=== PATIENT | female | born 1970 ===

== ENCOUNTER 2025-03-10 08:00 | Day surgery (SDC) | payer OTHER ==
[2025-03-08 10:13] VITALS: BP 130/77
[2025-03-08 10:30] LABS: BASO % 1.0 % (0.1-1.2); EOS # 0.42 (0.04-0.54); EOS % 6.1 % (0.7-7.0); LYMPH # 2.61 (1.18-3.74); LYMPH % 37.8 % (19.3-53.1); MEAN PLATELET VOLUME 9.80 fl (9.4-12.4); MONO # 0.50 (0.24-0.82); MONO % 7.2 % (4.7-12.5); NEUT # 3.28 (1.56-6.13); NEUT % 47.5 % (34.0-71.1); RED CELL DISTRIBUTION WIDTH 12.2 % (11.6-14.4)
[2025-03-08 10:32] LABS: URINE APPEARANCE Clear; URINE BILIRRUBIN Negative (NEGATIVE); URINE BLOOD Negative; URINE COLOR Yellow; URINE GLUCOSE Negative (NEGATIVE); URINE KETONE Negative (NEGATIVE); URINE LEUKOCYTE Small; URINE NITRATE Negative; URINE PROTEIN Negative (NEGATIVE); URINE UROBILINOGEN 1.0 E.U./dl
[2025-03-08 10:37] LABS: URINE BACTERIA 253.1 uL (0.0-1933); URINE EPITHELIAL CELLS 13.0 uL (0.0-38.8); URINE RBC 8.2 uL (0.0-20.8); URINE WBC 19.5 uL (0.0-23.2)
[2025-03-08 11:04] LABS: URINE CAST 0.00 uL (0.0-1.40)
[2025-03-08 11:12] LABS: INR 1.07
[2025-03-08 11:49] LABS: ALT/SGPT 57.0 U/L (12-78); AST/SGOT 42.0 U/L (15-37); BILIRUBIN TOTAL 0.68 mg/dL (0.3-1.2); BUN CREA RATIO 17.0 (7.0-25.0); CREATININE SERUM 0.65 mg/dL (0.55-1.02); GFR 94.29; GLOBULINA 3.9 G/DL (2.4-3.5); GLUCOSE FASTING 101.0 mg/dL (65-100); OSMOLALITY SERUM 283.0 MOSM/KG (275-295)
[~2025-03-10] VITALS: Ht 157.5 cm; Wt 104.3 kg
[~2025-03-10 08:00] MED LIST: COZAAR50 MG PO; SYNTHROID137 MCG PO
[2025-03-10] MEDS ORDERED: CEFAZOLIN SODIUM 1,000 MG VIAL ONE (08:36)
[2025-03-10] MEDS ORDERED: BACTRIM DS TAB1 EACH PO (10:14)
[2025-03-10] MEDS ORDERED: ACETAMINOPHEN500 M2 PO (10:14)
== END 2025-03-10 12:05 | disposition home or self-care (01) ==
LOC: CIR.AMB 08:00
PROVIDERS: ATTEND Surgery
DX: D17.1 Benign lipomatous neoplasm of skin and subcutaneous tissue of trunk (principal); D49.2 Neoplasm of unspecified behavior of bone, soft tissue, and skin